=== PATIENT | female | born 1970 ===

== ENCOUNTER 2023-11-19 11:22 | Outpatient (AMB) | payer OTHER, SELFPAY ==
--- NOTE | 2023-11-19 11:32 | A.OFFVIS_ITS ---
Vital Signs 11/19/23 11:43 Height 5 ft 8 in Weight 224 lb BMI 34.1 Intake Visit Reasons: N/P Chronic pain of LEFT knee Intake Note: Berto is a 53 year old female who presents today as a new patient with complaints of left knee pain. Patient reports that she has had oning left knee pain for quite some time now, but has had increased pain since a fall on the knee she took about 3 years ago. She is utilizing THC topical cream which offered temporary relief. Takes Ibuprofen with mild relief. Hx of cortisone injection done about 2 years ago, this did not help her. Pain increases while crossing legs and prolonged walking Allergies cortisone Allergy (Verified 11/19/23 11:42) arrhythmia HPI HPI N/P Chronic pain of LEFT knee: Details: 53-year-old female who presents in the office today for an evaluation of right knee pain. Patient was referred to the office by her PCP for an evaluation of increased pain. While in the office today the patient reports ongoing pain for some time. She states it increased when she fell on the knee about 3 year ago. She is utilizing THC topical cream which offered temporary relief. Confirms use of Tylenol with mild relief. She states she has increased pain with crossing her legs and prolonged standing. Patient has a significant medical history of diabetes mellitus. Patient has a history of cortisone injection about 2 years ago with no relief. [facility] Surgical History (Updated 11/19/23 @ 11:43 by Libra Lemons CMA) S/P rotator cuff repair Social History (Updated 11/19/23 @ 11:43 by Libra Lemons CMA) Current occupational status: employed Current occupation: EMT Review of Systems Const All systems reviewed & are unremarkable except as noted in HPI and below Physical Exam Vital Signs: BMI result Body Mass Index 34.1 Const General: cooperative and no acute distress Orientation/consciousness: patient oriented x3 Resp Effort & Inspection: normal respiratory effort and able to speak in complete sentences Cardio Peripheral pulses: Peripheral pulses 2+ throughout Skin General skin exam: no rashes or lesions noted Neuro General: patient oriented x3 Extrem Other: Right knee: Normal to inspection. No ecchymosis, erythema, or joint effusion. No tenderness to palpation along the medial or lateral joint lines. Retro patella pain. Pain with patella grind. Full knee extension and flexion. Crepitus with retro patella grind. NVI. Assessment & Plan Assessment & Plan (1) Osteoarthritis of right knee: Code(s): M17.11 - Unilateral primary osteoarthritis, right knee Category: Medical Qualifiers: Osteoarthritis type: unspecified Qualified Code(s): M17.11 - Unilateral primary osteoarthritis, right knee (2) Diabetes mellitus: Code(s): E11.9 - Type 2 diabetes mellitus without complications Category: Medical Plan Ms. Shaw is a 53-year-old female who presents in the office today for an evaluation of right knee pain. Patient was referred to the office by her PCP for an evaluation of increased pain. While in the office today the patient reports ongoing pain for some time. She states it increased when she fell on the knee about 3 years ago. She is utilizing THC topical cream which offered temporary relief. Confirms use of Tylenol with mild relief. She states she has increased pain with crossing her legs and prolonged standing. Patient has a significant medical history of diabetes mellitus. Patient has a history of cortisone injection about 2 years ago with no relief. Patient has consistently tried and failed 3 plus months of oral anti- inflammatory, Ibuprofen 800 mg TID, topical anti-inflammatory, and topical cannabis oil. She tried and failed cortisone injections, which increased her pain and caused her to develop an allergy causing arrhythmia after the injection. The office will petition the insurance for Gel injection approval. Follow up will be after approval is obtained for Gel injections. X-rays of the right knee which were obtained while in the office today and were reviewed by me, Maria Eugenia Wang PA-C, revealed osteoarthritis. Orders: Orders XR knee LT 3V Today M25.569 - Pain in unspecified knee Patient Instructions: Scribed by Amisha Noe medical coding technician, for Maria Eugenia Wang PA-C on 11/19/2023 at 11:24 am, EST.
[2023-11-19 11:43] VITALS: BMI 34.1
== END 2023-11-19 12:47 | disposition home or self-care (01) ==
PROVIDERS: PCP Nurse Practitioner Family; Visit Provider Physician Assistant
DX: M17.11 Unilateral primary osteoarthritis, right knee (principal); E11.9 Type 2 diabetes mellitus without complications
CPT/HCPCS: 99204

== ENCOUNTER 2023-11-19 11:22 | Outpatient (REF) | payer OTHER, SELFPAY ==
--- NOTE | ~2023-11-19 | XR_ITS ---
EXAMINATION: XR LEFT KNEE XR LIMITED RIGHT KNEE CLINICAL INFORMATION: Pain in knee. COMPARISON: None available. TECHNIQUE: AP upright views of both knees. Additional lateral and patellofemoral view of the left knee. FINDINGS: Left knee: Medial compartment: Mild joint space narrowing and marginal osteophytes indicative of nexd-kw-khchtwzq osteoarthritis. Lateral compartment: Small marginal osteophytes without joint space narrowing indicative of mild osteoarthritis. Patellofemoral compartment: Marginal osteophytes without joint space narrowing indicative of mild osteoarthritis. Trace joint effusion. Limited right knee AP upright: The visualized bone and joints are normal. XR/XR knee LT 3V IMPRESSION: Left knee: Tricompartmental osteoarthritis with degenerative changes most prominent in the medial compartment being [id number]. Right knee limited: Unremarkable.
== END 2023-11-19 11:23 | disposition home or self-care (01) ==
LOC: HO.HOSX 11:22
PROVIDERS: PCP Nurse Practitioner Family; Visit Provider Physician Assistant
DX: M25.562 Pain in left knee (principal)
CPT/HCPCS: 73562

== ENCOUNTER 2023-11-26 10:40 | Outpatient (AMB) | payer OTHER, SELFPAY ==
--- NOTE | 2023-11-26 10:49 | A.OFFVIS_ITS ---
Intake Visit Reasons: Left Knee Euflexxa #1 Intake Note: Berto is a 53 year old female who presents today for her 1st euflexxa gel injection. Allergies cortisone Allergy (Verified 11/19/23 11:42) arrhythmia HPI HPI Left Knee Euflexxa #1: Details: 53-year-old female who presents in the office today for a follow up of left knee pain and to obtain her 1st Euflexxa injection in a series of 3. PFSH Surgical History (Updated 11/19/23 @ 11:43 by Libra Lemons CMA) S/P rotator cuff repair Social History (Updated 11/19/23 @ 11:43 by Libra Lemons CMA) Current occupational status: employed Current occupation: EMT Review of Systems Const All systems reviewed & are unremarkable except as noted in HPI and below Physical Exam Const General: cooperative, healthy appearing and no acute distress Resp Effort & Inspection: normal respiratory effort and able to speak in complete sentences Cardio Rate: regular rate Peripheral pulses: Peripheral pulses 2+ throughout GI Palpation (GI): Soft to palpation Skin Lesions: no lesions Rashes: no rashes Extrem Other: Left knee: Normal to inspection. No ecchymosis, erythema, or joint effusion. No tenderness to palpation along the medial or lateral joint lines. Full knee extension and flexion. Crepitus felt with ROM. NVI. Office Procedures Joint Injection/Drain Joint Injection/Drain Primary Site: left knee Prep: site was prepped using aseptic technique, site was prepped using sterile technique and injection warnings given Injected: in the joint (Euflexxa #1) Approach Used: anterolateral Procedure: The patient tolerated the procedure well, but had some pain with the injection and there was some relief with the local anesthesia Coding 81602 - Large joint Procedure code (CPT) selection complete Assessment & Plan Assessment & Plan (1) Osteoarthritis of left knee: Code(s): M17.12 - Unilateral primary osteoarthritis, left knee Category: Medical Qualifiers: Osteoarthritis type: unspecified Qualified Code(s): M17.12 - Unilateral primary osteoarthritis, left knee (2) Diabetes mellitus: Code(s): E11.9 - Type 2 diabetes mellitus without complications Category: Medical Plan Colin Iyer is a 53-year-old female who presents in the office today for a follow up of left knee pain and to obtain her 1st Euflexxa injection in a series of 3. The patient was injection with her 1st Euflexxa injection in the left knee. The patient was explained the risk, benefits, and alternatives to receiving this injection. After receiving consent for the injection, the patient had the procedure done while in the office today. The patient tolerated the procedure well with no complications. Follow up will be in 1 week, or sooner if needed. Patient Instructions: Scribed by Amisha Noe medical microbiologist, for Maria Eugenia Wang PA-C on 11/26/2023 at 10:56 am, EST. Coding Level of Care Code Procedure Only Diagnoses Osteoarthritis of left knee, unspecified osteoarthritis type M17.12 Osteoarthritis type: unspecified Diabetes mellitus E11.9 CPT Codes Coding - 74666 Large joint: 00453 - Large joint ([id number])
== END 2023-11-26 11:00 | disposition home or self-care (01) ==
PROVIDERS: PCP Nurse Practitioner Family; Visit Provider Physician Assistant
DX: M17.12 Unilateral primary osteoarthritis, left knee (principal); E11.9 Type 2 diabetes mellitus without complications
CPT/HCPCS: 20610

== ENCOUNTER → 2023-11-26 10:40 | Outpatient (BNVA) | payer OTHER, SELFPAY | PROVIDERS: PCP Nurse Practitioner Family; Visit Provider Physician Assistant | DX: M17.12 Unilateral primary osteoarthritis, left knee (principal); E11.9 Type 2 diabetes mellitus without complications | CPT/HCPCS: 20610; J7323 ==

== ENCOUNTER 2023-12-03 10:42 | Outpatient (AMB) | payer OTHER, SELFPAY ==
--- NOTE | 2023-12-03 11:22 | MHC.OFFVIS ---
Intake Visit Reasons: Left Knee Euflexxa #2 Intake Note: Berto is a 53 year old female who presents today for her 2 nd euflexxa gel injection. Patient reports her last injection caused her a lot of pain which woke her up at night. Allergies cortisone Allergy (Verified 11/19/23 11:42) arrhythmia HPI HPI Left Knee Euflexxa #2: Details: 53-year-old female who presents in the office today for a follow up of left knee pain and to obtain her 2nd Euflexxa injection in a series of 3. [facility] Surgical History (Updated 11/19/23 @ 11:43 by Libra Lemons CMA) S/P rotator cuff repair Social History (Updated 11/19/23 @ 11:43 by Libra Lemons CMA) Current occupational status: employed Current occupation: EMT Review of Systems Const All systems reviewed & are unremarkable except as noted in HPI and below Physical Exam Const General: cooperative, healthy appearing and no acute distress Resp Effort & Inspection: normal respiratory effort and able to speak in complete sentences Cardio Rate: regular rate Peripheral pulses: Peripheral pulses 2+ throughout GI Palpation (GI): Soft to palpation Skin Lesions: no lesions Rashes: no rashes Extrem Other: Left knee: Normal to inspection. No ecchymosis, erythema, or joint effusion. No tenderness to palpation along the medial or lateral joint lines. Full knee extension and flexion. Crepitus felt with ROM. NVI. Office Procedures Joint Injection/Drain Joint Injection/Drain Details: Euflexxa #2 as well as 5cc 2% plain lido Primary Site: left knee Prep: site was prepped using aseptic technique, ethochloride spray was applied and injection warnings given Injected: in the joint and other (2% plain lido 5cc ) Approach Used: anterolateral Procedure: The patient tolerated the procedure well, but had some pain with the injection and there was some relief with the local anesthesia Coding 04982 - Large joint Procedure code (CPT) selection complete Assessment & Plan Assessment & Plan (1) Osteoarthritis of left knee: Code(s): M17.12 - Unilateral primary osteoarthritis, left knee Category: Medical Qualifiers: Osteoarthritis type: unspecified Qualified Code(s): M17.12 - Unilateral primary osteoarthritis, left knee (2) Diabetes mellitus: Code(s): E11.9 - Type 2 diabetes mellitus without complications Category: Medical Plan Ms. Shaw is a 53-year-old female who presents in the office today for a follow up of left knee pain and to obtain her 2nd Euflexxa injection in a series of 3. The patient was injection with her 2nd Euflexxa injection in the left knee. The patient was explained the risk, benefits, and alternatives to receiving this injection. After receiving consent for the injection, the patient had the procedure done while in the office today. The patient tolerated the procedure well with no complications. Patient was also injected with 5% Lidocaine because of the patient and hard time the patient had after the first injection. She said this injection was less painful. She will see how thing progress over the next few days for the Euflexxa. If this helps we will do the same for injection number 3. Follow up will be in 1 week, or sooner if needed. Patient Instructions: Scribed by Amisha Noe, medical lab technologist, for Maria Eugenia Wang PA-C on 12/03/2023 at 10:45 am, EST. Coding Level of Care Code Procedure Only Diagnoses Osteoarthritis of left knee, unspecified osteoarthritis type M17.12 Osteoarthritis type: unspecified Diabetes mellitus E11.9 CPT Codes Coding - 13471 Large joint: 44096 - Large joint ([id number])
== END 2023-12-03 11:22 | disposition home or self-care (01) ==
PROVIDERS: PCP Nurse Practitioner Family; Visit Provider Physician Assistant
DX: M17.12 Unilateral primary osteoarthritis, left knee (principal); E11.9 Type 2 diabetes mellitus without complications
CPT/HCPCS: 20610

== ENCOUNTER → 2023-12-03 10:42 | Outpatient (BNVA) | payer OTHER, SELFPAY | PROVIDERS: PCP Nurse Practitioner Family; Visit Provider Physician Assistant | DX: M17.12 Unilateral primary osteoarthritis, left knee (principal); E11.9 Type 2 diabetes mellitus without complications | CPT/HCPCS: 20610; J7323 ==

== ENCOUNTER 2023-12-10 11:07 | Outpatient (AMB) | payer OTHER, SELFPAY ==
--- NOTE | 2023-12-10 11:26 | MHC.OFFVIS ---
Intake Visit Reasons: Left Knee Euflexxa #3 Intake Note: Berto is a 53 year old female who presents today for her third euflexxa gel injection. Patient reports she has felt any change in her pain yet. She expresses that her pain feels a bit worse when she first had the pain. Allergies cortisone Allergy (Verified 11/19/23 11:42) arrhythmia HPI HPI Left Knee Euflexxa #3: Details: Ms. Shaw is a 53-year-old female who presents in the office today for a follow up of left knee pain and to obtain her 3rd Euflexxa injection in a series of 3. While in the office the patient reports she has not felt any change in her pain. She states the pain feels a bit worse than the pain she originally had. [facility] Surgical History (Updated 11/19/23 @ 11:43 by Libra Lemons CMA) S/P rotator cuff repair Social History (Updated 11/19/23 @ 11:43 by Libra Lemons CMA) Current occupational status: employed Current occupation: EMT Review of Systems Const All systems reviewed & are unremarkable except as noted in HPI and below Physical Exam Const General: cooperative, healthy appearing and no acute distress Resp Effort & Inspection: normal respiratory effort and able to speak in complete sentences Cardio Rate: regular rate Peripheral pulses: Peripheral pulses 2+ throughout GI Palpation (GI): Soft to palpation Skin Lesions: no lesions Rashes: no rashes Extrem Other: Left knee: Normal to inspection. No ecchymosis, erythema, or joint effusion. No tenderness to palpation along the medial or lateral joint lines. Full knee extension and flexion. Crepitus felt with ROM. NVI. Office Procedures Joint Injection/Drain Joint Injection/Drain Primary Site: left knee Prep: site was prepped using aseptic technique, ethochloride spray was applied and injection warnings given Injected: in the joint (5cc 2% plain lido ) and other (Euflexxa #3) Approach Used: anterolateral Procedure: The patient tolerated the procedure well, but had some pain with the injection and there was some relief with the local anesthesia Coding 22015 - Large joint Procedure code (CPT) selection complete Assessment & Plan Assessment & Plan (1) Osteoarthritis of left knee: Code(s): M17.12 - Unilateral primary osteoarthritis, left knee Category: Medical Qualifiers: Osteoarthritis type: unspecified Qualified Code(s): M17.12 - Unilateral primary osteoarthritis, left knee (2) Diabetes mellitus: Code(s): E11.9 - Type 2 diabetes mellitus without complications Category: Medical Plan Ms. Shaw is a 53-year-old female who presents in the office today for a follow up of left knee pain and to obtain her 3rd Euflexxa injection in a series of 3. While in the office the patient reports she has not felt any change in her pain. She states the pain feels a bit worse than the pain she originally had. The patient was injection with her 3rd Euflexxa injection in the left knee. The patient was explained the risk, benefits, and alternatives to receiving this injection. After receiving consent for the injection, the patient had the procedure done while in the office today. The patient tolerated the procedure well with no complications. Patient was also injected with 5cc of Lidocaine due to the patient having a hard time after the first injection. This helped her after the second injection. I discussed with the patient that she can call the office in a month to update me on her pain status. Otherwise follow up will be PRN, or sooner if needed. Patient Instructions: Scribed by Amisha Noe medical psychotherapist, for Maria Eugenia Wang PA-C on 12/10/2023 at 11:48 am, EST. Coding Level of Care Code Procedure Only Diagnoses Osteoarthritis of left knee, unspecified osteoarthritis type M17.12 Osteoarthritis type: unspecified Diabetes mellitus E11.9 CPT Codes Coding - 75478 Large joint: 78328 - Large joint ([id number])
== END 2023-12-10 12:30 | disposition home or self-care (01) ==
PROVIDERS: PCP Nurse Practitioner Family; Visit Provider Physician Assistant
DX: M17.12 Unilateral primary osteoarthritis, left knee (principal); E11.9 Type 2 diabetes mellitus without complications
CPT/HCPCS: 20610

== ENCOUNTER → 2023-12-10 11:07 | Outpatient (BNVA) | payer OTHER, SELFPAY | PROVIDERS: PCP Nurse Practitioner Family; Visit Provider Physician Assistant | DX: M17.12 Unilateral primary osteoarthritis, left knee (principal); E11.9 Type 2 diabetes mellitus without complications | CPT/HCPCS: 20610; J7323 ==

== ENCOUNTER 2024-02-21 09:13 | Outpatient (AMB) | payer OTHER, SELFPAY ==
--- NOTE | 2024-02-21 09:16 | MHC.OFFVIS ---
Vital Signs 02/21/24 09:17 Height 5 ft 8 in Weight 209 lb BMI 31.8 BP 144/84 H Blood Pressure Location Rt brachial Position Sitting Pulse 104 H Pulse Source Pulse Oximeter Pulse Oximetry (%) 95 Oxygen Delivery Method Room Air Intake Visit Reasons: Unilateral primary osteoarthritis both knees Allergies cortisone Allergy (Verified 02/21/24 09:19) arrhythmia Medication List - Last Reconciled 02/21/24 by Caro Jeff losartan 50 mg PO DAILY metformin ER 1,000 mg PO BID metoprolol succinate ER 25 mg PO DAILY omeprazole 20 mg PO DAILY tirzepatide (Mounjaro) 5 mg subcut QWEEK HPI HPI Unilateral primary osteoarthritis both knees: Details: 53-year-old female who presents today to the office for an evaluation of unilateral primary osteoarthritis both knees. The patient was referred by Maria Eugenia Wang. The patient reports ongoing left knee pain but has had increased pain since a fall on the knee about 4 years ago. She slipped on her socks, landed fully on her knee, and ruptured her PCL. The pain is localized in the medial aspect of the left knee. It is rated at 10/10 in intensity at its worst.?Movements or weight bearing worsen the pain. She has difficulty climbing stairs up or down or coming out of bed. She has difficulty sleeping at night. She is utilizing THC topical cream for temporary relief. He takes ibuprofen with mild relief. She has a history of cortisone injections done about 2 years ago; which did not help her. Pain increases while crossing legs and prolonged walking. She had left knee Euflexxa injections x 3. She had an x-ray of the knee, which showed mild osteoarthritis. She had an MRI scan in September 2019 at [facility] in the past, after the fall. She also reports right shoulder pain. The pain started several years ago. She rates her pain at 7/10 in intensity in her right shoulder and lower back area. She was seen by the orthopedics. She has tried gabapentin and tramadol in the past. She has tried swimming, which helps to relieve the pain. She is trying to lose some weight. She history is also notable for left total shoulder replacement and has significant limitation in her left shoulder. [facility] Surgical History (Updated 11/19/23 @ 11:43 by Libra Lemons CMA) S/P rotator cuff repair Social History (Updated 11/19/23 @ 11:43 by Libra Lemons [facility]) Current occupational status: employed Current occupation: EMT Review of Systems Const All systems reviewed & are unremarkable except as noted in HPI and below Physical Exam Vital Signs: Last Vital Signs Pulse 104 H 02/21/24 09:17 BP 144/84 H 02/21/24 09:17 Pulse Ox 95 02/21/24 09:17 Oxygen Delivery Method Room Air 02/21/24 09:17 BMI result Body Mass Index 31.8 General: Appears afebrile. Alert and oriented. Mood and affect appropriate. Follows and participates in conversation appropriately. Respiratory effort is unlabored. Able to transition from sit to stand unassisted. Ambulates with bilaterally normal heel strike and toe off. She is wearing a brace on her left knee. The knee is reported to be tender. I did not remove the brace. Results Reviewed Results Reviewed: 11/19/23: XR LEFT KNEE, XR LIMITED RIGHT KNEE FINDINGS: Left knee: Medial compartment: Mild joint space narrowing and marginal osteophytes indicative of zwdr-ag-fixoubsn osteoarthritis. Lateral compartment: Small marginal osteophytes without joint space narrowing indicative of mild osteoarthritis. Patellofemoral compartment: Marginal osteophytes without joint space narrowing indicative of mild osteoarthritis. Trace joint effusion. Limited right knee AP upright: The visualized bone and joints are normal. IMPRESSION: Left knee: Tricompartmental osteoarthritis with degenerative changes most prominent in the medial compartment being [id number]. Right knee limited: Unremarkable. 09/2019: MRI scan of the knee. Thickening and signal intensity indicating a sprain in both ACL and PCL. There was a focal area of bone marrow edema in the posterior aspect of the medial condyle, with moderate joint effusion. There is also thinning of the cartilage, reflecting early chondrosis. 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 Discussed cortisone/hyaluronic acid vs. peripheral nerve stimulators (temporary or permanent) vs. regenerative medicine techniques (PRP) as possible treatment options for knee pain. She has already exhausted the cortisone and hyaluronic acid injections. I had a long discussion with the patient about the benefits of trying peripheral nerve stimulation. She is interested in proceeding with that. She would like to hold off on knee replacement as much as possible. We will proceed with a trial of left temporary saphenous nerve stimulation. Informed the patient that insurance approval is required. We will file a PA for approval and keep her updated. I provided her with a brochure. Discussed the risks and benefits of the procedure with the patient in detail. All questions were answered. The patient is on board with the plan. Justification for interventional therapy: ? Patient with average pain > 6/10 ? Patient has exhausted conservative therapy ? Patient unable to tolerate physical therapy due to pain. . Patient has a good understanding of their pain condition and has appropriate mental and social support The patient requested an interval-management strategy to bridge until her PNS procedure. She has previously taken Vicodin with good effect. Gabapentin, oxycodone, and percocet have not been helpful. I provided her with a one-time script of Vicodin 60 tablets with clear communication that this would not be refilled. The patient expressed understanding. Scribed for Dr. West by Esvin Dang, director medical, on 02/21/2024. I, Dr. West, have personally reviewed and agree with the information entered by the scribe. Medications: New hydrocodone-acetaminophen 5-325 mg Partial Fill upon patient request. 1 tab PO BID PRN 30 tabs 0RF pain hydrocodone-acetaminophen 5-325 mg Partial Fill upon patient request. 1 tab PO BID PRN 60 tabs 0RF pain Coding Level of Care Code New Pt Level 4 (23281) Diagnoses Osteoarthritis of left knee, unspecified osteoarthritis type M17.12 Osteoarthritis type: unspecified Chronic pain of left knee M25.562; G89.29
[2024-02-21 09:17] VITALS: BP 144/84; PULSE 104; O2SAT 95; BMI 31.8
== END 2024-02-21 10:16 | disposition home or self-care (01) ==
PROVIDERS: PCP Nurse Practitioner Family; Visit Provider Internal Medicine
DX: M17.12 Unilateral primary osteoarthritis, left knee (principal); M25.562 Pain in left knee; G89.29 Other chronic pain
CPT/HCPCS: 99204

== ENCOUNTER → 2024-02-21 09:13 | Outpatient (BNVA) | payer OTHER, SELFPAY | PROVIDERS: PCP Nurse Practitioner Family; Visit Provider Internal Medicine ==